=== PATIENT | female | born 1975 | race Hispanic/Latino ===

== ENCOUNTER 2025-03-07 12:47 | Emergency (ER) | payer SELFPAY ==
[2025-03-07 14:37] LABS: #Basophils 0.07 10x3/uL (0.0-0.2); #Eosinophils 0.73 10x3/uL (0.0-0.7); #Monocytes 0.37 10x3/uL (0.11-0.59); #Neutrophils 4.15 10x3/uL (1.40-6.50); %Basophils 0.8 % (0.0-1.0); %Eosinophils 8.8 % (0.0-10.0); %Lymphocytes 35.7 % (21.0-51.0); %Monocytes 4.5 % (0.0-10.0); %Neutrophils 50.0 % (42.0-75.0); Hematocrit 42.3 % (36.0-47.0); Hemoglobin 14.3 g/dL (12.0-16.0); Mean Corpuscular Hemoglobin 29.1 pg (27.0-31.0); Mean Corpuscular Volume 86.2 fL (78.0-98.0); Platelet Count 382 10x3/uL (130-400); Red Blood Cell (RBC) Count 4.91 mill/uL (4.20-5.40); White Blood Cell (WBC) Count 8.31 10x3/uL (4.8-10.8)
[2025-03-07 14:50] LABS: ALT (SGPT) 18 U/L (Less than 34); AST (SGOT) 22 U/L (11-34); Albumin 4.0 g/dL (3.1-4.5); Alkaline Phosphatase 117 U/L (40-110); Anion Gap 12 mmol/L (10-20); BUN (Urea Nitrogen) 13 mg/dL (7.0-18.7); Bilirubin, Total 0.3 mg/dL (0.3-1.2); Calc. Creatinine Clearance 0 mL/min (70-130); Calcium 9.1 mg/dL (7.8-10.44); Carbon Dioxide 25 mmol/L (22-29); Chloride 101 mmol/L (98-107); Globulin 3.7 g/dL (2.4-3.5); Glucose 255 mg/dL (70-105); Potassium 4.0 mmol/L (3.5-5.1); Sodium 134 mmol/L (136-145)
[2025-03-07 15:02] LABS: Pregnancy Test - Urine (BHCG) Negative (Negative); Pregu Control Background? CLEAR/WHITE (CLR/WHITE); Pregu Control Bar Appear? YES (CONTROL BAR)
[2025-03-07 15:08] LABS: Bacteria/HPF None Seen HPF (None Seen); CAUTI Indications for Culture Dysuria,urgency,freq; Glucose, Urine (Dipstick) Greater than 1000 mg/dL (Negative); Leukocyte 250 Leu/uL (Negative); Protein, Urine (Dipstick) Negative (Neg-Trace); RBC/HPF 0-3 HPF (0-3); Specific Gravity, Urine 1.037 (1.002-1.036); Yeast-Budding 1+ HPF (None Seen)
[2025-03-07 15:11] LABS: Urine Culture Reflex No No
[2025-03-07 16:40] LABS: BHCG - Serum Negative (NEGATIVE); Pregs Control Background? CLEAR/WHITE (CLR/WHITE); Pregs Control Bar Appear? YES (CONTROL BAR)
== END 2025-03-07 16:43 | disposition home or self-care (01) ==
LOC: ERS 12:47
DX: N39.0 Urinary tract infection, site not specified (principal); N76.0 Acute vaginitis; E11.9 Type 2 diabetes mellitus without complications
CPT/HCPCS: 74176; 80053; 81001; 81025; 84703; 85025